=== PATIENT | female | born 1995 | race Caucasian/White ===

== ENCOUNTER 2017-05-05 09:51 | Emergency (ER) | payer MEDICAID | END 2017-05-05 10:52 | disposition home or self-care (01) | LOC: D.ER 09:51 | DX: K04.7 Periapical abscess without sinus (principal); K08.89 Other specified disorders of teeth and supporting structures ==

== ENCOUNTER 2018-02-27 21:56 | Emergency (ER) | payer SELFPAY ==
[~2018-02-27] VITALS: Ht 154.9 cm; Wt 63.6 kg
[2018-02-27 22:20] VITALS: Ht 154.9 cm; Wt 63.6 kg
[2018-02-27] MEDS ORDERED: TYLENOL W/CODEI1 TAB PO (23:03)
[2018-02-27 23:55] VITALS: BP 130/70
== END 2018-02-27 23:55 | disposition home or self-care (01) ==
LOC: D.ER 21:56
DX: M25.532 Pain in left wrist (principal); F17.200 Nicotine dependence, unspecified, uncomplicated